=== PATIENT | male | born 2000 | race Two or more races ===

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

== ENCOUNTER 2019-04-04 21:53 | Inpatient (IN) | payer BC, MEDICAID ==
[2019-04-04] MEDS ORDERED: Lactated Ringers 1,000 ML IV ONE (22:46)
[2019-04-04] MEDS ORDERED: Ondansetron 4 MG/2 ML SDV IVPUSH ONE (22:47)
[2019-04-04] MEDS ORDERED: HYDROmorphone 1 MG/ML Syringe IVPUSH ONE (22:47)
--- NOTE | 2019-04-04 22:56 | EDM.PDOC ---
ED HPI GENERAL MEDICAL PROBLEM - General Chief Complaint: Abdominal Pain Stated Complaint: ABD PAIN Time Seen by Provider: 04/04/19 22:30 Source of Information: Reports: Patient, Family History Limitations: Reports: No Limitations - History of Present Illness INITIAL COMMENTS - FREE TEXT/NARRATIVE: 18 yo who presents with concerns of abdominal pain. Had similar symptoms last summer. Negative imaging. 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 Never found cause for abdominal pain. This morning woke up with generalized abdominal pain, now localizing to the RLQ Associated nausea. Subjective fevers and chills. No vomiting or diarrhea. Right Lower Abdomen Pain Score (Numeric/FACES): 7 - Related Data Allergies Allergy/AdvReac Type Severity Reaction Status Date / Time Penicillins Allergy Intermediate Hives Verified 04/04/19 22:20 Home Meds: Home Meds NK [No Known Home Meds] 04/04/19 [History] Past Medical History - Past Health History Medical/Surgical History: Denies Medical/Surgical History HEENT History: Reports: None Genitourinary History: Reports: Other (See Below) Other Genitourinary History: Medullary cystic kidney Musculoskeletal History: Reports: Other (See Below) Other Musculoskeletal History: bilateral knee pain. left knee pain DOI 04-23-18 - Past Surgical History HEENT Surgical History: Reports: Adenoidectomy, Tonsillectomy Musculoskeletal Surgical History: Reports: None Social & Family History - Family History Family Medical History: Noncontributory GI: Reports: Inflammatory Bowel Disease - Caffeine Use Caffeine Use: Reports: None - Recreational Drug Use Recreational Drug Use: No ED ROS GENERAL - Review of Systems Review Of Systems: See Below Constitutional: Reports: Fever, Chills HEENT: Reports: No Symptoms Respiratory: Reports: No Symptoms Cardiovascular: Reports: No Symptoms Endocrine: Reports: No Symptoms GI/Abdominal: Reports: Abdominal Pain, Nausea : Reports: No Symptoms Musculoskeletal: Reports: No Symptoms Skin: Reports: No Symptoms Neurological: Reports: No Symptoms Psychiatric: Reports: No Symptoms Hematologic/Lymphatic: Reports: No Symptoms Immunologic: Reports: No Symptoms ED EXAM, GI/ABD - Physical Exam Exam: See Below Exam Limited By: No Limitations General Appearance: Alert, Moderate Distress Ears: Normal External Exam Nose: Normal Inspection Head: Atraumatic, Normocephalic Neck: Normal Inspection Respiratory/Chest: Lungs Clear Cardiovascular: Regular Rate, Rhythm GI/Abdominal Exam: Guarding, Tender (most prominent in the right lower qu) Back Exam: Normal Inspection Extremities: Normal Inspection Neurological: Alert, Oriented Psychiatric: Normal Affect, Normal Mood Skin Exam: Warm, Dry Course - Vital Signs Last Recorded V/S: Last Vital Signs Temp 37.4 C 04/04/19 22:17 Pulse 70 04/05/19 01:25 Resp 16 04/05/19 01:25 BP 116/53 L 04/04/19 22:17 Pulse Ox 100 04/05/19 01:25 - Orders/Labs/Meds Orders: Active Orders 24 hr Category Date Time Status cefTRIAXone [Rocephin] 2 gm Med 04/05/19 01:56 Ordered Sodium Chloride 0.9% [Normal Saline] 50 ml IV ONETIME metroNIDAZOLE/Normal Saline [Flagyl 500 MG in NS 100 ML Med 04/05/19 02:00 Ordered ] 500 mg Premix Bag 1 bag IV Q8H Medication Orders Ceftriaxone Sodium 2 gm/ (Sodium Chloride) 50 mls @ 100 mls/hr IV ONETIME ONE Stop: 04/05/19 02:25 Last Admin: 04/05/19 02:14 Dose: 100 mls/hr Metronidazole 500 mg/ Premix 100 mls @ 100 mls/hr IV Q8H [facility] Labs: Laboratory Tests 04/04/19 04/04/19 04/04/19 Range/Units 22:50 22:50 22:50 WBC 17.9 H (4.5-11.0) K/uL RBC 5.25 (4.30-5.90) M/uL Hgb 14.2 (12.0-15.0) g/dL Hct 44.1 (40.0-54.0) % MCV 84 (80-98) fL MCH 27 (27-31) pg MCHC 32 (32-36) % Plt Count 245 (150-400) K/uL Sodium 140 (140-148) mmol/L Potassium 3.9 (3.6-5.2) mmol/L Chloride 102 (100-108) mmol/L Carbon Dioxide 28 (21-32) mmol/L Anion Gap 10.5 (5.0-14.0) mmol/L BUN 9 (7-18) mg/dL Creatinine 0.9 (0.8-1.3) mg/dL Est Cr Clr Drug Dosing 144.90 mL/min Estimated GFR (MDRD) > 60 (>60) Glucose 105 (74-106) mg/dL Calcium 9.0 (8.5-10.1) mg/dL Total Bilirubin 0.5 (0.2-1.0) mg/dL AST 21 (15-37) U/L ALT 43 (12-78) U/L Alkaline Phosphatase 101 (46-116) U/L C-Reactive Protein 3.18 H (0.0-0.3) mg/dL Total Protein 7.6 (6.4-8.2) g/dL Albumin 4.0 (3.4-5.0) g/dL Globulin 3.6 H (2.3-3.5) g/dL Albumin/Globulin Ratio 1.1 L (1.2-2.2) Lipase 34 L (73-393) U/L Meds: Medications Generic Name Dose Route Start Last Admin Trade Name Freq PRN Reason Stop Dose Admin Ceftriaxone Sodium 2 gm/ 50 mls @ 100 mls/hr 04/05/19 01:56 04/05/19 02:14 Sodium Chloride IV 04/05/19 02:25 100 mls/hr ONETIME ONE Administration Metronidazole 500 mg/ Premix 100 mls @ 100 mls/hr 04/05/19 02:00 IV Q8H JAYY Discontinued Medications Generic Name Dose Route Start Last Admin Trade Name Freq PRN Reason Stop Dose Admin Hydromorphone HCl 1 mg 04/04/19 22:47 04/04/19 23:02 Dilaudid IVPUSH 04/04/19 22:48 1 mg ONETIME ONE Administration Lactated Ringer's 1,000 mls @ 999 mls/hr 04/04/19 22:46 04/04/19 23:00 Ringers, Lactated IV 04/04/19 23:46 999 mls/hr BOLUS ONE Administration Sodium Chloride 81 mls @ 3.5 mls/sec 04/05/19 01:00 04/05/19 01:16 Normal Saline IV 04/05/19 01:01 3.5 mls/sec ASDIRECTED STA Administration Iopamidol 136 ml 04/05/19 01:00 04/05/19 01:15 Isovue-300 (61%) IV 04/05/19 01:01 150 ml . DIRECTED STA Administration Ondansetron HCl 4 mg 04/04/19 22:47 04/04/19 23:01 Zofran IVPUSH 04/04/19 22:48 4 mg ONETIME ONE Administration - Re-Assessments/Exams Free Text/Narrative Re-Assessment/Exam: 18 yo who presents with concerns of abdominal pain. On exam found to be tachycardic, quite tender in the RLQ. Does seem to have had some migration to the RLQ today. Overall appears quite uncomfortable. Similar presentation last summer, etiology never determined, question whether he had undiagnosed IBD Give his exquisite tenderness I do think we need to do another CT of the abdomen. Will provide IVF, pain control and anti-emetic, check labs including Cr prior to determining whether we can administer IV contrast. 04/04/19 22:53 Free Text/Narrative Re-Assessment/Exam: Labs remarkable for elevated WBC and markedly elevated CRP. Patient now resting comfortably. Await CT scan, will administer PO in addition to IV contrast as suspicion for IBD remains. 04/05/19 01:30 Free Text/Narrative Re-Assessment/Exam: CT shows acute appendicitis Given Ceftriaxone + flagyl (penicillin allergic) Admitted to surgery for OR in AM 04/05/19 02:17 Departure - Departure Time of Disposition: 02:15 Disposition: Refer to Observation Clinical Impression: Appendicitis Qualifiers: Appendicitis type: acute appendicitis Acute appendicitis type: with localized peritonitis Appendicitis gangrene presence: without gangrene Appendicitis perforation presence: without perforation Appendicitis abscess presence: without abscess Qualified Code(s): K35.30 - Acute appendicitis with localized peritonitis, without perforation or gangrene - Discharge Information Referrals: PCP,None [Primary Care Provider] - Forms: ED Department Discharge Sepsis Event Note - Evaluation Sepsis Screening Result: Possible Sepsis Risk - Focused Exam Vital Signs: Vital Signs Temp Pulse Resp BP Pulse Ox 04/05/19 01:25 70 16 100 04/04/19 22:17 37.4 C 104 H 16 116/53 L 98 Date Exam was Performed: 04/05/19 Time Exam was Performed: 02:15 - My Orders Last 24 Hours: My Active Orders 04/05/19 01:56 cefTRIAXone [Rocephin] 2 gm Sodium Chloride 0.9% [Normal Saline] 50 ml IV ONETIME 04/05/19 02:00 metroNIDAZOLE/Normal Saline [Flagyl 500 MG in NS 100 ML] 500 mg Premix Bag 1 bag IV Q8H - Assessment/Plan Last 24 Hours: My Active Orders 04/05/19 01:56 cefTRIAXone [Rocephin] 2 gm Sodium Chloride 0.9% [Normal Saline] 50 ml IV ONETIME 04/05/19 02:00 metroNIDAZOLE/Normal Saline [Flagyl 500 MG in NS 100 ML] 500 mg Premix Bag 1 bag IV Q8H
[2019-04-05] MEDS ORDERED: Iopamidol 612 MG/ML 150 ML Bottle IV STA (01:00)
--- NOTE | 2019-04-05 01:51 | CRLCT ---
INDICATION: Right lower quadrant pain TECHNIQUE: CT abdomen and pelvis acquired with oral contrast and 136 cc Isovue-300 IV contrast. COMPARISON: August 07, 2018 FINDINGS: Lower chest: Unremarkable. Liver: Unremarkable. Spleen: Unremarkable. Pancreas: Unremarkable. Gallbladder and bile ducts: Unremarkable. Adrenal glands: Unremarkable. Kidneys: Unremarkable. GI tract: Oral contrast reaches the proximal ascending colon. The appendix measures 1.4 cm. There is fluid around the appendix. No extraluminal air or an abscess. There are some mildly enlarged lymph nodes in the right lower quadrant mesenteric fat. Vascular structures: Unremarkable. Lymph nodes: Unremarkable. Miscellaneous: Small amount of free fluid in the pelvis. Pelvic Organs: Unremarkable. Bones: Unremarkable for age. IMPRESSION: Acute appendicitis. Fluid around the appendix. No abscess or extraluminal air. Findings discussed with Dr. Kellogg at 1:50 a.m. on April 05, 2019. Please note that all CT scans at this facility use dose modulation, iterative reconstruction, and/or weight-based dosing when appropriate to reduce radiation dose to as low as reasonably achievable. Dictated by Carolyn Sanchez MD @ Apr 05 2019 1:44AM Signed by Dr. Carolyn Sanchez @ Apr 05 2019 1:50AM
[2019-04-05] MEDS ORDERED: cefTRIAXone 2 GM in Sodium Chloride 0.9% 50 ML IV ONE (01:56)
[2019-04-05] MEDS ORDERED: metroNIDAZOLE/Normal Saline 500 MG in Premix Bag 1 BAG IV SCH (02:00)
[2019-04-05] MEDS ORDERED: Lactated Ringers 1,000 ML IV SCH (02:15)
[2019-04-05] MEDS ORDERED: HYDROmorphone 1 MG/ML Syringe IVPUSH PRN (02:19)
[2019-04-05] MEDS ORDERED: Succinylcholine 200 MG/10 ML MDV ONE (07:07)
[2019-04-05] MEDS ORDERED: Dexamethasone 4 MG/ML SDV ONE (07:07)
[2019-04-05] MEDS ORDERED: Ondansetron 4 MG/2 ML SDV ONE (07:07)
[2019-04-05] MEDS ORDERED: fentaNYL 250 MCG/5 ML SDV ONE (07:07)
[2019-04-05] MEDS ORDERED: Neostigmine Methylsulfate 1 MG/ML 5 ML Syringe ONE (07:07)
[2019-04-05] MEDS ORDERED: Rocuronium 50 MG/5 ML Vial ONE (07:07)
[2019-04-05] MEDS ORDERED: Propofol 200 MG/20 ML SDV ONE (07:07)
[2019-04-05] MEDS ORDERED: Glycopyrrolate 0.2 MG/ML 5 ML MDV ONE (07:07)
[2019-04-05] MEDS ORDERED: cefOXitin 2 GM Vial ONE (07:30)
[2019-04-05] MEDS ORDERED: Lactated Ringers 1,000 ML ONE (07:45)
[2019-04-05] MEDS ORDERED: fentaNYL 100 MCG/2 ML SDV ONE (07:47)
[2019-04-05] MEDS: Bupivacaine 0.5%/EPINEPHrine 1:200,000 50 ML MDV ONE ×2 (07:50→08:08)
[2019-04-05] MEDS ORDERED: hydrOXYzine HCL 100 MG/2 ML SDV IM PRN (08:49)
[2019-04-05] MEDS ORDERED: Cyclobenzaprine 10 MG Tab PO PRN (09:18)
[2019-04-05] MEDS ORDERED: cefOXitin 2 GM in Sodium Chloride 0.9% 50 ML IV SCH (10:00)
[2019-04-05] MEDS: Acetaminophen 500 MG Tab PO SCH ×3 (10:28→22:40)
[2019-04-05] MEDS: HYDROmorphone 0.5 MG/0.5 ML Syringe IVPUSH PRN ×2 (10:28→20:32)
--- NOTE | 2019-04-05 10:36 | PN ---
DATE OF SERVICE: 04/05/2019 SUBJECTIVE: Nino is n.p.o. He will be having a laparoscopic appendectomy this morning. He received IV Dilaudid and states his pain has been controlled. REVIEW OF SYSTEMS: Remainder of review of systems negative for any pertinent positives and negatives. OBJECTIVE: GENERAL: Nino Landeros is a 18-year-old male, resting comfortably in bed. VITAL SIGNS: TPR 97, 92, 14, blood pressure 141/63. HEART: Regular rate and rhythm. LUNGS: CLEAR. ABDOMEN: Deferred. DIAGNOSIS: Already confirmed. ASSESSMENT: Acute appendicitis. PLAN: First case for a laparoscopic possible open appendectomy, general anesthesia with TAP block, Srikanth De Leon MD. The patient is n.p.o. Orders to be written postoperatively. Winifred Saba PA-C /[id number]
[2019-04-05] MEDS: Ondansetron 4 MG/2 ML SDV IV PRN ×3 (10:40→20:36)
[2019-04-05] MEDS: HYDROmorphone 1 MG/ML Syringe IV PRN ×2 (11:52→17:22)
[2019-04-05] MEDS: Dextrose 5%-Lactated Ringers 1,000 ML IV SCH ×2 (13:09→20:30)
[2019-04-05] MEDS: cefOXitin 2 GM in Sodium Chloride 0.9% 50 ML IV SCH ×2 (13:54→20:30)
[2019-04-06] MEDS: Ondansetron 4 MG/2 ML SDV IV PRN (02:05)
[2019-04-06] MEDS: cefOXitin 2 GM in Sodium Chloride 0.9% 50 ML IV SCH ×2 (02:05→07:29)
[2019-04-06] MEDS: HYDROmorphone 0.5 MG/0.5 ML Syringe IVPUSH PRN (02:05)
[2019-04-06] MEDS: Acetaminophen 500 MG Tab PO SCH ×2 (04:58→09:45)
[2019-04-06] MEDS ORDERED: Dextrose 5%-Lactated Ringers 1,000 ML IV SCH (08:45)
[2019-04-06] MEDS: HYDROmorphone 2 MG Tab PO PRN ×2 (08:46→12:50)
[2019-04-06] MEDS ORDERED: Ibuprofen 600 MG Tab PO SCH (10:00)
[2019-04-06 11:48] VITALS: BP 116/58; PULSE 50
--- NOTE | 2019-04-08 08:20 | PN ---
DATE OF SERVICE: 04/06/2019 The patient is postoperative day #1 from a laparoscopic appendectomy. No major problems were noted overnight. We will go up to a regular diet today and oral pain medication. If he tolerates the regular diet and oral pain medication, he may be ready for discharge home either later today or tomorrow. Srikanth De Leon MD /[id number]
--- NOTE | 2019-04-12 15:02 | OR ---
DATE OF PROCEDURE: 04/05/2019 SURGEON: Srikanth De Leon MD PREOPERATIVE DIAGNOSIS: Acute appendicitis. POSTOPERATIVE DIAGNOSES: 1. Acute appendicitis with inflammation extending onto adjacent cecum. 2. Peritoneal lesion adherent to the distal segment of small bowel and anterior abdominal wall. OPERATIVE PROCEDURE: Diagnostic laparoscopy with: 1. Partial cecectomy including removal of overlying appendix (16898). 2. Removal of peritoneal lesion extending from distal small bowel to the anterior abdominal wall (32505). ANESTHESIA: General. INDICATION FOR PROCEDURE: This is a 18-year-old presenting with a picture of acute appendicitis clinically and radiologically. Plan is to proceed with a diagnostic laparoscopy with appendectomy and other procedures as indicated. Potential risks including bleeding, leaks from GI tract closures, possible injury of the viscera, as well as possibility of cardiopulmonary, septic, or hemorrhagic complications leading to were discussed, and the patient wishes to proceed. DETAILS OF PROCEDURE: The patient was taken to the operating room. After general endotracheal anesthesia was induced, a Baeza catheter was inserted, and the abdomen prepped and draped. Three fingerbreadths superior and to the left of the umbilicus, a transverse incision was made and the peritoneal cavity entered under direct vision with an Optiview trocar, inflated to 15 mmHg pressure of CO2. Laparoscope was then reinserted. No underlying trocar insertion site injuries were seen. Following this, 12 mm trocars were placed in the left lower quadrant and right upper quadrant and the lower abdomen examined. After brief dissection of some adherent peritoneum, the appendix was able to be identified. This was mobilized upward. The inflammation extended well onto the cecal base, which was quite edematous and friable, and it was felt that, in this case, partial cecectomy including removal of overlying attached appendix would be appropriate procedure, rather than a simple appendectomy. The mesoappendix was at this point divided with Harmonic Scalpel. This allowed elevation of the appendix and the adjacent cecum up to a point where it could then be divided with a TARA purple load. Care was taken to avoid impingement on the lumen of the ileocecal valve. The specimen was then placed in a specimen bag and delivered through the left lower quadrant trocar site. Earlier in the case, a linear peritoneal lesion between the anterior abdominal wall and the distal small bowel was identified. This was felt to be something that would pose a risk for bowel obstruction, and given this, this was excised from the abdominal wall and flush with the small bowel, and then the lesion, which measured around 3 cm in length, was delivered from the field. At this point, no further problems were noted. Drain was felt not to be necessary. The trocars were then sequentially removed and the fascia at the trocar sites closed with 0 Vicryl stitch and the skin closed with 4-0 Vicryl skin stitch. The patient received bilateral transversus abdominis plane blocks and also had Marcaine injected into the incisions. He was taken to the recovery room in satisfactory condition. Srikanth De Leon MD /[id number]
--- NOTE | 2019-04-19 14:55 | DISCH ---
FINAL DIAGNOSES: 1. Acute appendicitis with inflammation extending onto adjacent cecum. 2. Peritoneal lesion adhered to distal aspect of the small bowel and anterior abdominal wall. OPERATIVE PROCEDURE: Diagnostic laparoscopy with: 1. Partial cecectomy including removal of overlying appendix. 2. Removal of peritoneal lesion extending from the distal small bowel to the anterior abdominal wall. SUMMARY: This is a 18-year-old presenting with a picture of acute appendicitis clinically and radiologically. 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 Postoperatively, the patient was advanced to regular diet and switched over to oral pain medication and subsequently discharged home. He will be following up with Dr. De Leon at [facility] in roughly 1 week. At the time of discharge, no further antibiotics were prescribed. He is given a prescription for Dilaudid 2 mg q.4 hours p.r.n. pain #30.
== END 2019-04-06 13:10 | disposition still patient (30) | DRG 330 ==
LOC: JP.ED 21:53 → JP.2SS 04-05 02:15 → OBSVTOIN 04-05 09:58
PROVIDERS: ADMIT Surgery; ATTEND Surgery
PROC: 0DTJ4ZZ Resection of Appendix, Percutaneous Endoscopic Approach (ICD-10-PCS; principal; 2019-04-05)
PROC: 0DBH4ZZ Excision of Cecum, Percutaneous Endoscopic Approach (ICD-10-PCS; 2019-04-05)
DX: K35.80 Unspecified acute appendicitis (principal); Q61.5 Medullary cystic kidney; Z88.0 Allergy status to penicillin; Z90.49 Acquired absence of other specified parts of digestive tract; Z90.89 Acquired absence of other organs
CPT/HCPCS: 36415; 74177; 80053; 83690; 85027; 86140; 88304; 88305; 94762; 96361; 96366; 96374; 96375; 99285-25; A9270-GY; G0378; J0171; J0330; J0694; J0696; J1100; J1170; J2405; J2704; J2710; J2795; J3010; J3410; J3490; J7050; J7120; J7121; Q9967

== ENCOUNTER 2019-12-14 09:09 | Day surgery (SDC) | payer MEDICAID ==
[2019-12-14] MEDS ORDERED: fentaNYL 100 MCG/2 ML SDV ONE (09:26)
[2019-12-14] MEDS ORDERED: Midazolam 1 MG/ML 2 ML SDV ONE (09:27)
[2019-12-14] MEDS ORDERED: Propofol 200 MG/20 ML SDV ONE (09:27)
[2019-12-14] MEDS ORDERED: Glycopyrrolate 0.2 MG/ML 2 ML SDV IVPUSH ONE (10:00)
[2019-12-14] MEDS ORDERED: Dextrose 5%-Lactated Ringers 1,000 ML IV SCH (10:00)
[2019-12-14 13:19] VITALS: BP 119/62; PULSE 93
--- NOTE | 2019-12-21 12:58 | OR ---
DATE OF PROCEDURE: 12/14/2019 SURGEON: Srikanth De Leon MD PREOPERATIVE DIAGNOSES: Epigastric discomfort and nausea. POSTOPERATIVE DIAGNOSES: Epigastric discomfort and nausea associated with mild antral gastritis and proximal duodenitis. OPERATIVE PROCEDURE: Esophagogastroduodenoscopy with antral biopsies for CLOtest. ANESTHESIA: IV sedation. INDICATIONS FOR PROCEDURE: A 19-year-old male, presenting with some ongoing epigastric discomfort and nausea. He was started on 12/01/[address] Fisher on omeprazole 20 mg a day and since then has had quite a bit in the way of improvement of symptoms. Plan is to proceed with upper GI endoscopy with biopsies as indicated. Potential risks including bleeding and perforation were discussed, and the patient wishes to proceed. DETAILS OF PROCEDURE: The patient was taken to the operating room, and placed in a left lateral decubitus position. IV sedation was administered, after which the upper GI endoscope was passed orally through the length of the esophagus and into the stomach with retroflexion view of the fundus, and thereafter through the pyloric channel into the junction of 3rd and 4th portions of the duodenum. Findings included normal hypopharynx, larynx, upper esophageal sphincter, esophageal body, and no significant hiatal hernia was present. Within the stomach, there was some patchy redness in the antrum which continued into the duodenal bulb beyond which the findings normalized. At this point, biopsies were obtained from the antrum and sent for CLOtest for H pylori. Minimal bleeding from biopsy sites was seen and the procedure was then concluded. It would appear the patient's symptoms are likely improving with omeprazole and we will continue that present dose. If the CLOtest is positive, we will contact the patient and his mother regarding treatment of that issue. Otherwise, we will arrange followup with Dr. Fisher in [facility] in 2 weeks. Srikanth De Leon MD /[id number]
== END 2019-12-14 13:15 | disposition home or self-care (01) ==
LOC: JP.SDS 09:09
PROVIDERS: ATTEND Surgery
DX: K29.90 Gastroduodenitis, unspecified, without bleeding (principal); K21.9 Gastro-esophageal reflux disease without esophagitis
CPT/HCPCS: 43239; 87081; J2250; J2704; J3010; J3490; J7121